=== PATIENT | female | born 1990 | race Caucasian/White ===

== ENCOUNTER → 2018-01-27 13:02 | Emergency (ER) | payer OTHER ==
[~2018-01-27 13:02] MED LIST: Azithromycin TAB* 250 MG PO ONE; Lidocaine 2% PF * 5 ML VIAL ONE; cefTRIAXone VIAL(*) 250 MG VIAL IM ONE
[2018-01-27 14:56] LABS: ABS Basophils 0.1 10^3/ul (0-0.2); ABS Eosinophils 0.1 10^3/ul (0-0.6); ABS Lymphocytes 1.9 10^3/ul (1.0-4.8); ABS Monocytes 0.8 10^3/ul (0-0.8); ABS Neutrophils 3.7 10^3/ul (1.5-7.7); ABS Nucleated RBC 0 10^3/ul; Eosinophil % 1.6 % (0-6); Hematocrit 42 % (35-47); Hemoglobin 14.4 g/dl (12.0-16.0); Lymphocyte % 28.8 % (25-47); Mean Corpuscular HGB Conc 34 g/dl (31-36); Mean Corpuscular Hemoglobin 32 pg (27-31); Mean Corpuscular Volume 93 fL (80-97); Mean Platelet Volume 9.5 um3 (7.4-10.4); Nucleated Red Blood Cells % 0; Platelet Count 269 10^3/ul (150-450); Red Blood Count 4.56 10^6/ul (4.00-5.40); Red Cell Distribution Width 13 % (10.5-15); White Blood Count 6.5 10^3/ul (3.5-10.8)
[2018-01-27 15:06] LABS: Urine Appearance Clear; Urine Blood 2+ (Negative); Urine Color Straw; Urine Ketones Negative (Negative); Urine Protein Negative (Negative); Urine Red Blood Cell Trace(0-2/hpf) (Absent); Urine Specific Gravity 1.003 (1.010-1.030); Urine Urobilinogen Negative (Negative); Urine White Blood Cell Absent (Absent)
[2018-01-27 15:14] LABS: EGFR Non-African American 95.8 (>60)
--- NOTE | 2018-01-27 15:43 | ED ---
Abdominal Pain/Female - HPI Summary HPI Summary: Patient is a 27-year-old female who presents to the emergency room for right lower quadrant pain that started 2 days ago. Patient states pain was intermittent and increased after intercourse last night. Patient states pain has decided today but is still bleeding present. Pain is worse with walking and leaning forward. Denies associated symptoms of fever, chills, nausea, vomiting, diarrhea, constipation, dysuria, hematuria, vaginal discharge or irregular bleeding. Symptoms are moderate in severity. She denies past medical history. - History of Current Complaint Chief Complaint: EDAbdPain Stated Complaint: ABD PAIN Time Seen by Provider: 01/27/18 15:23 Hx Obtained From: Patient Pain Intensity: 3 Allergies/Adverse Reactions: Allergies Allergy/AdvReac Type Severity Reaction Status Date / Time No Known Allergies Allergy Verified 01/27/18 13:17 Home Medications: Home Medications NK [No Home Medications Reported] 01/27/18 [History Confirmed 01/27/18] PMH/Surg Hx/FS Hx/Imm Hx Previously Healthy: Yes Infectious Disease History: No Infectious Disease History: Denies: Traveled Outside the [place] in Last 30 Days - Family History Known Family History: Positive: Other - Noncontributory - Social History Occupation: Unemployed Lives: With Family Alcohol Use: None Substance Use Type: Reports: None Smoking Status (MU): Never Smoked Tobacco Review of Systems Constitutional: Negative Negative: Fever, Chills Positive: Sore Throat, Nasal Discharge Cardiovascular: Negative Respiratory: Negative Positive: Abdominal Pain. Negative: Vomiting, Diarrhea, Nausea Genitourinary: Negative Negative: dysuria, discharge, frequency, flank pain Neurological: Negative All Other Systems Reviewed And Are Negative: Yes Physical Exam Triage Information Reviewed: Yes Vital Signs On Initial Exam: Initial Vitals Temp Pulse Resp BP Pulse Ox 97.8 F 110 16 127/69 98 01/27/18 13:13 01/27/18 13:13 01/27/18 13:13 01/27/18 13:13 01/27/18 13:13 Vital Signs Reviewed: Yes Appearance: Positive: Well-Appearing - Pt. sitting up in bed in NAD. present. Skin: Positive: Warm, Dry Head/Face: Positive: Normal Head/Face Inspection Eyes: Positive: Normal, EOMI Neck: Positive: Supple Respiratory/Lung Sounds: Positive: Clear to Auscultation, Breath Sounds Present Cardiovascular: Positive: Normal, RRR Abdomen Description: Positive: Other: - Pain on palpation over the right adnexal region. No pain at Mcburny's point. No rebound tenderness or guarding.. Negative: CVA Tenderness (R), CVA Tenderness (L) Pelvic Exam: Positive: Other - Exam performed with pt.'s nurse in room, [facility]. External genitalia is unremarkable. Speculum exam revealed a moderat amoutn of whitish/yellowish thick discharge from the cervix. Cervix is erythematous. Bimanual exam reveals +CMT and pain over the right adnexa. Neurological: Positive: Normal, CN Intact II-III Psychiatric: Positive: Affect/Mood Appropriate Diagnostics - Vital Signs Vital Signs Temp Pulse Resp BP Pulse Ox 01/27/18 13:13 97.8 F 110 16 127/69 98 - Laboratory Lab Results: Lab Results 01/27/18 01/27/18 01/27/18 Range/Units 14:27 14:27 14:27 WBC 6.5 (3.5-10.8) 10^3/ul RBC 4.56 (4.00-5.40) 10^6/ul Hgb 14.4 (12.0-16.0) g/dl Hct 42 (35-47) % MCV 93 (80-97) fL MCH 32 H (27-31) pg MCHC 34 (31-36) g/dl RDW 13 (10.5-15) % Plt Count 269 (150-450) 10^3/ul MPV 9.5 (7.4-10.4) um3 Neut % (Auto) 56.5 (38-83) % Lymph % (Auto) 28.8 (25-47) % [place] % (Auto) 11.5 H (0-7) % Eos % (Auto) 1.6 (0-6) % Baso % (Auto) 1.6 (0-2) % Absolute Neuts (auto) 3.7 (1.5-7.7) 10^3/ul Absolute Lymphs (auto) 1.9 (1.0-4.8) 10^3/ul Absolute Monos (auto) 0.8 (0-0.8) 10^3/ul Absolute Eos (auto) 0.1 (0-0.6) 10^3/ul Absolute Basos (auto) 0.1 (0-0.2) 10^3/ul Absolute Nucleated RBC 0 10^3/ul Nucleated RBC % 0 Sodium 138 (135-145) mmol/L Potassium 4.1 (3.5-5.0) mmol/L Chloride 104 (101-111) mmol/L Carbon Dioxide 26 (22-32) mmol/L Anion Gap 8 (2-11) mmol/L BUN 10 (6-24) mg/dL Creatinine 0.72 (0.51-0.95) mg/dL Est GFR ( Amer) 115.9 (>60) Est GFR (Non-Af Amer) 95.8 (>60) BUN/Creatinine Ratio 13.9 (8-20) Glucose 96 (70-100) mg/dL Lactic Acid 1.1 (0.5-2.0) mmol/L Calcium 9.7 (8.6-10.3) mg/dL Total Bilirubin 0.50 (0.2-1.0) mg/dL AST 16 (13-39) U/L ALT 9 (7-52) U/L Alkaline Phosphatase 44 (34-104) U/L C-Reactive Protein 8.12 H (<8.01) mg/L Total Protein 7.7 (6.4-8.9) g/dL Albumin 4.7 (3.2-5.2) g/dL Globulin 3.0 (2-4) g/dL Albumin/Globulin Ratio 1.6 (1-3) Lipase 15 (11.0-82.0) U/L Beta HCG, Quant Pending Urine Color Urine Appearance Urine pH (5-9) Ur Specific [place] (1.010-1.030) Urine Protein (Negative) Urine Ketones (Negative) Urine Blood (Negative) Urine Nitrate (Negative) Urine Bilirubin (Negative) Urine Urobilinogen (Negative) Ur Leukocyte Esterase (Negative) Urine WBC (Auto) (Absent) Urine RBC (Auto) (Absent) Ur Squamous Epith Cells (Absent) Urine Bacteria (Absent) Urine Glucose (Negative) 01/27/18 Range/Units 14:41 WBC (3.5-10.8) 10^3/ul RBC (4.00-5.40) 10^6/ul Hgb (12.0-16.0) g/dl Hct (35-47) % MCV (80-97) fL MCH (27-31) pg MCHC (31-36) g/dl RDW (10.5-15) % Plt Count (150-450) 10^3/ul MPV (7.4-10.4) um3 Neut % (Auto) (38-83) % Lymph % (Auto) (25-47) % [place] % (Auto) (0-7) % Eos % (Auto) (0-6) % Baso % (Auto) (0-2) % Absolute Neuts (auto) (1.5-7.7) 10^3/ul Absolute Lymphs (auto) (1.0-4.8) 10^3/ul Absolute Monos (auto) (0-0.8) 10^3/ul Absolute Eos (auto) (0-0.6) 10^3/ul Absolute Basos (auto) (0-0.2) 10^3/ul Absolute Nucleated RBC 10^3/ul Nucleated RBC % Sodium (135-145) mmol/L Potassium (3.5-5.0) mmol/L Chloride (101-111) mmol/L Carbon Dioxide (22-32) mmol/L Anion Gap (2-11) mmol/L BUN (6-24) mg/dL Creatinine (0.51-0.95) mg/dL Est GFR ( Amer) (>60) Est GFR (Non-Af Amer) (>60) BUN/Creatinine Ratio (8-20) Glucose (70-100) mg/dL Lactic Acid (0.5-2.0) mmol/L Calcium (8.6-10.3) mg/dL Total Bilirubin (0.2-1.0) mg/dL AST (13-39) U/L ALT (7-52) U/L Alkaline Phosphatase (34-104) U/L C-Reactive Protein (<8.01) mg/L Total Protein (6.4-8.9) g/dL Albumin (3.2-5.2) g/dL Globulin (2-4) g/dL Albumin/Globulin Ratio (1-3) Lipase (11.0-82.0) U/L Beta HCG, Quant Urine Color Straw Urine Appearance Clear Urine pH 6.0 (5-9) Ur Specific [place] 1.003 L (1.010-1.030) Urine Protein Negative (Negative) Urine Ketones Negative (Negative) Urine Blood 2+ A (Negative) Urine Nitrate Negative (Negative) Urine Bilirubin Negative (Negative) Urine Urobilinogen Negative (Negative) Ur Leukocyte Esterase Negative (Negative) Urine WBC (Auto) Absent (Absent) Urine RBC (Auto) Trace(0-2/hpf) (Absent) Ur Squamous Epith Cells Present A (Absent) Urine Bacteria 1+ A (Absent) Urine Glucose Negative (Negative) Result Diagrams: 01/27/18 14:27 01/27/18 14:27 Lab Statement: Any lab studies that have been ordered have been reviewed, and results considered in the medical decision making process. Abdominal Pain Fem Course/Dx - Course Course Of Treatment: Patient presenting with right lower quadrant abdominal pain 2 days. Pain is currently 3 out of 10. She has no associated symptoms. Blood work was obtained in triage and is unremarkable, except is not back at this time. Will obtain ultrasound to evaluate right ovary and flow. Pelvic exam and cultures will be obtained. Pt. declines pain medication as this time. Transvaginal u/s per radiology: IMPRESSION: In the right ovary there is a mixed echogenicity and avascular structure. measuring 5.3 cm in greatest dimension. In a woman of this age a large hemorrhagic. follicle is favored but endometrioma is also considered in the differential. If clinically. warranted follow-up pelvic ultrasound can be acquired in approximately 6 weeks to. determine resolution. Blood work is unremarkable including negative . U/A is contaminated, will send for culture. On pelvic exam pt. does have a moderate amount of discharge and CMT. I discussed u/s with radiologist who does not feel mass is a TOA. Will treat for possible cervisitis with rocephin and zithromax. Pending vaginal cultures. Results and plan discussed with pt. Pt. given INFO for [employer] and is to call office on Tuesday for an apt. for f.u of ovarian mass. Tylenol or motrin for pain as directed. To return to ER for increased pain, fever, vomiting or if concerned. Pt. understands and agrees with plan. - Diagnoses Differential Diagnosis: Positive: Appendicitis, Ectopic , Ovarian Cyst , Pelvic Inflammatory Disease, , Urinary Tract Infection Provider Diagnoses: Cervicitis, Hemorrhagic cyst of right ovary Discharge - Sign-Out/Discharge Documenting (check all that apply): Patient Departure - Discharge Plan Condition: Good Disposition: HOME Patient Education Materials: Cervicitis (ED), Ovarian Cyst (ED) Referrals: Sher Lobo MD [Medical Doctor] - No Primary Care Phys,NOPCP [Primary Care Provider] - Additional Instructions: Call Dr. Lobo's office on Tuesday for an appointment Tylenol or Motrin for pain as directed Will call if cultures come back positive Return to ER for increased pain, fever, vomiting, or if concerned - Billing Disposition and Condition Condition: GOOD Disposition: Home
--- NOTE | 2018-01-27 16:39 | RAD ---
INDICATION: Right lower quadrant pain COMPARISON: None. TECHNIQUE: Real-time transabdominal and transvaginal ultrasound examination of the female pelvis including grayscale and Doppler color flow imaging. FINDINGS: Uterus: The uterus is normal in size and echogenicity measuring 8.4 x 3.8 x 5.7 cm. The endometrial stripe is smooth and uniform measuring 9 in thickness. Ovaries: The right and left ovary measure 5.7 x 4.1 x 4.2 cm and 3.3 x 1.9 x 1.9 cm, respectively. Normal arterial and venous waveforms are identified. Within the right ovary there is a mixed echogenicity and avascular structure measuring 5.3 x 3.6 x 3.9 cm. There is no free fluid in the cul-de-sac. IMPRESSION: In the right ovary there is a mixed echogenicity and avascular structure measuring 5.3 cm in greatest dimension. In a woman of this age a large hemorrhagic follicle is favored but endometrioma is also considered in the differential. If clinically warranted follow-up pelvic ultrasound can be acquired in approximately 6 weeks to determine resolution.
[2018-01-27 17:40] VITALS: BP 126/67
--- NOTE | 2018-01-29 08:08 | ED ---
Progress - Progress Note Progress Note: Patient's final vaginal culture reveals negative Gardnerella and negative Jacqueline. No change in treatment at this time. Course/Dx - Course Course Of Treatment: Patient presenting with right lower quadrant abdominal pain 2 days. Pain is currently 3 out of 10. She has no associated symptoms. Blood work was obtained in triage and is unremarkable, except is not back at this time. Will obtain ultrasound to evaluate right ovary and flow. Pelvic exam and cultures will be obtained. Pt. declines pain medication as this time. Transvaginal u/s per radiology: IMPRESSION: In the right ovary there is a mixed echogenicity and avascular structure. measuring 5.3 cm in greatest dimension. In a woman of this age a large hemorrhagic. follicle is favored but endometrioma is also considered in the differential. If clinically. warranted follow-up pelvic ultrasound can be acquired in approximately 6 weeks to. determine resolution. Blood work is unremarkable including negative . U/A is contaminated, will send for culture. On pelvic exam pt. does have a moderate amount of discharge and CMT. I discussed u/s with radiologist who does not feel mass is a TOA. Will treat for possible cervisitis with rocephin and zithromax. Pending vaginal cultures. Results and plan discussed with pt. Pt. given INFO for [employer] and is to call office on Tuesday for an apt. for f.u of ovarian mass. Tylenol or motrin for pain as directed. To return to ER for increased pain, fever, vomiting or if concerned. Pt. understands and agrees with plan. - Diagnoses Provider Diagnoses: Cervicitis, Hemorrhagic cyst of right ovary Discharge - Sign-Out/Discharge Documenting (check all that apply): Post-Discharge Follow Up - Discharge Plan Condition: Good Disposition: HOME Patient Education Materials: Cervicitis (ED), Ovarian Cyst (ED) Referrals: Sher Lobo MD [Medical Doctor] - No Primary Care Phys,NOPCP [Primary Care Provider] - Additional Instructions: Call Dr. Lobo's office on Tuesday for an appointment Tylenol or Motrin for pain as directed Will call if cultures come back positive Return to ER for increased pain, fever, vomiting, or if concerned - Billing Disposition and Condition Condition: GOOD Disposition: Home
== END | disposition home or self-care (01) ==
LOC: ED 13:02
DX: N72 Inflammatory disease of cervix uteri (principal); N83.201 Unspecified ovarian cyst, right side
CPT/HCPCS: 36415; 76830; 80053; 81003; 81015; 83605; 83690; 84702; 85025; 86140; 87086; 87480; 87491; 87510; 87591; 87661; 96372; 99283; A9270-GY; J0696